=== PATIENT | female | born 1990 | race Caucasian/White ===

== ENCOUNTER → 2016-07-27 | Outpatient (CLI) | payer BC, OTHER ==
[2016-07-27 15:52] LABS: FREE T4 1.39 NG/DL (0.76-1.46)
== END ==
LOC: M WUC 13:51
PROVIDERS: ATTEND Physician Assistant Medical
DX: E06.3 Autoimmune thyroiditis (principal)

== ENCOUNTER → 2018-01-16 | Outpatient (REF) | payer OTHER ==
[2018-01-16 20:52] LABS: FREE T4 1.13 NG/DL (0.76-1.46)
== END ==
LOC: M LAB REF 09:50
DX: E06.3 Autoimmune thyroiditis (principal)

== ENCOUNTER → 2018-01-16 | Outpatient (REF) | payer OTHER | LOC: M LABDRWAD 09:53 | DX: O99.281 Endocrine, nutritional and metabolic diseases complicating pregnancy, first trimester (principal) ==

== ENCOUNTER → 2018-02-14 | Outpatient (REF) | payer OTHER ==
[2018-02-15 14:38] LABS: FREE T4 0.87 NG/DL (0.76-1.46)
== END ==
LOC: M LAB REF 13:58
DX: E06.3 Autoimmune thyroiditis (principal)

== ENCOUNTER → 2018-02-14 | Outpatient (REF) | payer OTHER | LOC: M LABDRWAD 14:01 | DX: Z34.82 Encounter for supervision of other normal pregnancy, second trimester (principal); Z36.89 Encounter for other specified antenatal screening ==

== ENCOUNTER → 2018-02-19 | Outpatient (CLI) | payer OTHER | LOC: M SMT 14:28 | DX: Z36.89 Encounter for other specified antenatal screening (principal); Z3A.19 19 weeks gestation of pregnancy | CPT/HCPCS: 76811 ==

== ENCOUNTER → 2018-03-26 | Outpatient (REF) | payer OTHER ==
[2018-03-26 19:25] LABS: FREE T4 1.02 NG/DL (0.76-1.46); THYROID STIMULATING HORMONE 1.08 uIU/ML (0.358-3.740)
== END ==
LOC: M LABDRAW1 18:41 → M LAB REF 18:41
PROVIDERS: ATTEND Nurse Practitioner Family
DX: E06.3 Autoimmune thyroiditis (principal)

== ENCOUNTER → 2018-03-26 | Outpatient (CLI) | payer OTHER ==
--- NOTE | 2018-03-27 04:14 | REP ---
Clinical: Anatomical evaluation. Comparison: 02/19/2018 . Findings: Examination demonstrates a single live intrauterine in cephalic presentation. motion is identified by technologist. Placenta is noted posterior and grade grade 1 without evidence for placenta previa or abruption. Amniotic fluid volume is normal. Cervix measures 5.4 cm in length and appears closed. No evidence for nuchal cord. Gestational age by LMP 24 weeks 1 day with KATHARINA 07/15/2018 . Gestational age by current measurements 23 weeks 5 days with KATHARINA 07/18/2018 . FHR equals 147 beats per minute. Estimated weight 648 grams ( 41st percentile). Anatomical assessment demonstrates normal structures including choroid plexus, cavum, cerebellum/posterior fossa, facial features, lungs, four-chamber heart/ventricular outflow tracts, diaphragm, stomach, cord insertion/three-vessel cord, kidneys/bladder, spine, and extremities. Impression: Single live intrauterine in cephalic presentation demonstrating appropriate interval growth. In conjunction with prior examination anatomical assessment is complete and normal. Electronically Signed by Nilay Alexis MD 03/27/2018 04:05 A
== END ==
LOC: M SMT 14:23
PROVIDERS: ATTEND Advanced Practice Midwife
DX: Z36.89 Encounter for other specified antenatal screening (principal); Z3A.23 23 weeks gestation of pregnancy

== ENCOUNTER → 2018-04-25 | Outpatient (CLI) | payer OTHER ==
[2018-04-25 18:13] LABS: HEMATOCRIT 30.1 % (36.0-47.0); HEMOGLOBIN 10.2 g/dl (12.0-15.5); MEAN CORPUSCULAR HEMOGLOBIN 32.3 pg (27.0-33.0); MEAN CORPUSCULAR HGB CONC 33.9 g/dl (32.0-36.5); MEAN CORPUSCULAR VOLUME 95.3 fl (80.0-96.0); RED BLOOD COUNT 3.16 10^6/uL (4.00-5.40); WHITE BLOOD COUNT 8.5 10^3/uL (4.0-10.0)
[2018-04-25 18:31] LABS: FREE T4 1.02 NG/DL (0.76-1.46); THYROID STIMULATING HORMONE 0.56 uIU/ML (0.358-3.740)
== END ==
LOC: M SMT 13:18
PROVIDERS: ATTEND Advanced Practice Midwife
DX: O99.282 Endocrine, nutritional and metabolic diseases complicating pregnancy, second trimester (principal)

== ENCOUNTER → 2018-05-03 | Outpatient (CLI) | payer OTHER | LOC: M LAB 06:44 | PROVIDERS: ATTEND Obstetrics & Gynecology | DX: Z34.83 Encounter for supervision of other normal pregnancy, third trimester (principal); Z3A.00 Weeks of gestation of pregnancy not specified ==

== ENCOUNTER → 2018-05-11 | Outpatient (CLI) | payer OTHER ==
[2018-05-11 21:02] LABS: BASO % 0.3 % (0.0-1.0); EOS % 0.2 % (0.0-3.0); HEMATOCRIT 31.9 % (36.0-47.0); HEMOGLOBIN 10.9 g/dl (12.0-15.5); LYMPH % 19.7 % (24.0-44.0); MEAN CORPUSCULAR HEMOGLOBIN 32.6 pg (27.0-33.0); MEAN CORPUSCULAR HGB CONC 34.2 g/dl (32.0-36.5); MEAN CORPUSCULAR VOLUME 95.5 fl (80.0-96.0); MONO # 0.8 10^3/uL (0.0-0.8); MONO % 8.2 % (0.0-5.0); NEUTROPHILS # 7.1 10^3/uL (1.8-7.7); NEUTROPHILS % 70.2 % (36.0-66.0); RED BLOOD COUNT 3.34 10^6/uL (4.00-5.40); WHITE BLOOD COUNT 10.1 10^3/uL (4.0-10.0)
[2018-05-11 21:08] LABS: FREE T4 1.34 NG/DL (0.76-1.46); THYROID STIMULATING HORMONE 0.195 uIU/ML (0.358-3.740)
== END ==
LOC: M ADAMS 16:54
PROVIDERS: ATTEND Nurse Practitioner Family
DX: D69.6 Thrombocytopenia, unspecified (principal); E06.3 Autoimmune thyroiditis

== ENCOUNTER → 2018-06-01 | Outpatient (REF) | payer OTHER ==
[2018-06-01 19:37] LABS: PLTBLUE- EDTA FREE CALC 162 K/mm3 (172-450)
[2018-06-01 19:43] LABS: PLTBLUE- EDTA FREE MACHINE 147 10^3/uL (172-450)
== END ==
LOC: M LAB REF 19:04
PROVIDERS: ATTEND Obstetrics & Gynecology
DX: Z34.83 Encounter for supervision of other normal pregnancy, third trimester (principal); Z3A.00 Weeks of gestation of pregnancy not specified

== ENCOUNTER → 2018-06-19 | Outpatient (REF) | payer OTHER | LOC: M LAB REF 13:22 | PROVIDERS: ATTEND Obstetrics & Gynecology | DX: Z34.83 Encounter for supervision of other normal pregnancy, third trimester (principal); Z3A.00 Weeks of gestation of pregnancy not specified ==

== ENCOUNTER 2018-07-14 15:04 | Inpatient (IN) | payer OTHER ==
[~2018-07-14] VITALS: Ht 160 cm; Wt 74.1 kg
[2018-07-14] MEDS: LR 1,000 ML IV SCH ×2 (03:15→17:35)
[2018-07-14 15:20] VITALS: BP 112/72
[2018-07-14] MEDS ORDERED: PENICILLIN G POTASSIUM IV 5 MU in D5W MINI-BAG PLUS 100 ML IV STA (15:22)
[2018-07-14] MEDS ORDERED: LACTATED RINGER'S 1000 ML IV STA (15:22)
[2018-07-14] MEDS ORDERED: FERR325T3 PO (16:11)
[2018-07-14] MEDS ORDERED: PRENTAB9 PO (16:11)
[2018-07-14] MEDS ORDERED: LEVO25TA5 PO (16:11)
[2018-07-14] MEDS ORDERED: METF500T13 PO (16:11)
[2018-07-14 16:28] LABS: PLTBLUE- EDTA FREE CALC 140 K/mm3 (172-450)
[2018-07-14 16:32] LABS: HEMATOCRIT 34.6 % (36.0-47.0); HEMOGLOBIN 11.9 g/dl (12.0-15.5); MEAN CORPUSCULAR HEMOGLOBIN 32.1 pg (27.0-33.0); MEAN CORPUSCULAR HGB CONC 34.4 g/dl (32.0-36.5); MEAN CORPUSCULAR VOLUME 93.3 fl (80.0-96.0); PLATELET COUNT, AUTOMATED 197 10^3/uL (150-450); RED BLOOD COUNT 3.71 10^6/uL (4.00-5.40); WHITE BLOOD COUNT 9.7 10^3/uL (4.0-10.0)
[2018-07-14 16:34] LABS: PLTBLUE- EDTA FREE MACHINE 127 10^3/uL (172-450)
[2018-07-14] MEDS: miSOPROStol 50 MCG 1/2 TAB (S0191) SL SCH ×2 (17:35→21:57)
[2018-07-14 17:40] VITALS: BP 114/62
--- NOTE | 2018-07-14 18:08 | NUR ---
L&D H&P HPI: 28 year old at 39+3 weeks estimated gestation. Expected date of confinement: 07/18/18. dated by LMP consistent with first TM US. Presents today for an IOL for GDM. Denies vaginal bleeding, loss of fluid, or uterine contractions. Reports regular movement. course c/b GDMA2, controlled with Metformin 500mg daily. PMH notable for hypothyroidism and she has been Euthyroid throughout this (dose of Synthroid 137mcg daily) labs: Blood type O+, antibody screen negative, rubella immune, VDRL nonreactive , hepatitis B surface antigen negative, HIV negative, hepatitis C antibody negative, GC/CT negative, aneuploidy/maternal serum screening: AFP4 negative, 1 hour glucose challenge test: 130, 3 hour glucose tolerance test: 80,198,219,136. GBS positive. Vaccinations: Tdap 05/11/18 Flu vaccine decline Radiology/OB US: no anomalies or placental abnormalities detected. History Past medical history: hypothyroidism Surgical history: left ankle/ortho Medications: PNV, levothyroxine 137mcg daily, Fe 325, Metformin 500mg Allergies: Sulfa ACTIVITY AIDE history: history of cervical dysplasia or STI/gHSV OB history: G1 Social history: no t/e/d Family history: HTN, Heart disease, Thyroid dz, MS. Objective Vitals: Normotensive, normal heart rate, afebrile Heart: Regular rate and rhythm. No murmurs, rubs or gallops. Lungs: Clear to auscultation bilaterally. No wheezes, crackles, rales or rhonchi. Abdomen: Uterine fundal height consistent with dates. No guarding or rebound tenderness. Extremities: No clubbing, cyanosis or edema. Normal deep tendon reflexes. Sterile vaginal exam: 3 cm, 50 %effacement, -3 station, cephalic, intact External monitoring: heart rate category 1 Tocodynamometer: contractions occurring intermittently Assessment/Plan 28 year old at 39+3 weeks gestation. Diagnosis: GDMA2. Reassuring and maternal status. -Admit to labor and delivery with routine labs and orders -External monitoring and tocodynamometer -Pediatrics and anesthesia consultations as needed. -GBS prophylaxis with IV penicillin -Start with cervical ripening Misoprostol 50mcg SL, then Pitocin -Insulin drip protocol PRN. Dr. Franco Merritt, DO, FACOG
[2018-07-14 18:51] VITALS: BP 118/70
[2018-07-14] MEDS ORDERED: PENICILLIN G POTASSIUM IV 2.5 MU in APPROPRIATE DILUENT 1 EA IV SCH (21:30)
[2018-07-15] VITALS (123 sets, daily range): BP systolic 59–132; BP diastolic 23–94
[2018-07-15] MEDS ORDERED: BUTORPHANOL 2 MG/ML INJ (J0595) IV ONE (02:30)
[2018-07-15] MEDS ORDERED: PROMETHAZINE INJ 25 MG/ML VIAL (J2550) IV ONE (02:30)
[2018-07-15] MEDS ORDERED: PROMETHAZINE INJ 25 MG/ML VIAL (J2550) As Ordered ONE (02:41)
[2018-07-15] MEDS ORDERED: BUTORPHANOL 2 MG/ML INJ (J0595) As Ordered ONE (02:42)
--- NOTE | 2018-07-15 02:44 | NUR ---
Progress Note Informed by RN that SROM occurred after second dose of misoprostol; clear fluid. RN rechecked SVE 4cm/75/-2. VSS/normotensive, normal HR, afebrile FHR Cat I [place]: ctxs q 3min Continue with Pitocin Nat Merritt DO
[2018-07-15] MEDS ORDERED: OXYTOCIN DRIP 30 UNITS in APPROPRIATE DILUENT 1 EA IV SCH ×2 (02:45→07:29)
[2018-07-15] MEDS ORDERED: OXYTOCIN 30 UNITS IN 0.9% NaCl 500ML IV BAG (J2590) As Ordered ONE (06:20)
--- NOTE | 2018-07-15 07:28 | NUR ---
Delivery note Spontaneous vaginal delivery Estimated gestational age at delivery: 39+4 weeks The active phase and second stage of labor progressed in normal fashion without epidural anesthesia. Patient did not receive any Pitocin labor augmentation. heart rate category 1 The head delivered left occiput anterior and restituted left occiput transverse. No nuchal cord was noted. The anterior shoulder delivered with gentle downward guidance and the remainder of the body delivered with ease. Cord clamping was delayed for approximately 1 minute after delivery. After doub ly clamping the cord, I guided the FOB to cut the cord. The was placed on the patient's chest for immediate bonding. data: Apgars 8 and 9. weight 3840 grams 8 pounds, 7 ounces. Time of delivery: 0645. Sex: Male The third stage of labor was actively managed with a bolus of IV Pitocin (30 units in 500 mL of normal saline). The placenta delivered completely intact with no missing cotyledons at 0650. A three-vessel cord with a central insertion was noted. After delivery of the placenta, the uterine fundus was approximately 2 c m below the umbilicus and firm. IV Pitocin was continued to maintain uterine tone. A normal, low level of uterine bleeding was noted. The cervix, vagina, vulva and perineum were inspected for lacerations. A first-degree laceration was noted. This was repaired with 3-0 Vicryl in typical fashion. Excellent hemostasis was noted. Estimated blood loss: 200 mL All sponges, needles, and instruments were accounted for per [facility] department protocol. Franco Merritt D.O., F.A.C.OSherry.
[2018-07-15] MEDS ORDERED: MEASLES,MUMPS,RUBELLA VACCINE INJ (MMR-II) (90707) SC SCH (07:30)
[2018-07-15] MEDS ORDERED: ACETAMINOPHEN 500 MG TAB PO PRN (07:30)
[2018-07-15] MEDS ORDERED: PROMETHAZINE 25 MG TAB PO PRN (07:30)
[2018-07-15] MEDS ORDERED: RHOGAM 300 MCG (1500 IU) INJ (J2790) IM SCH (07:30)
[2018-07-15] MEDS ORDERED: DOCUSATE SODIUM 100 MG CAP PO PRN (07:30)
[2018-07-15] MEDS ORDERED: ONDANSETRON 4MG/2ML VIAL (J2405) IV PRN (07:30)
[2018-07-15] MEDS: DIBUCAINE 1% OINTMENT 30GM TOP PRN ×3 (08:31→19:01)
[2018-07-15] MEDS: IBUPROFEN 800 MG TAB PO PRN ×2 (08:32→18:45)
[2018-07-15] MEDS: PRENATAL VITAMINS CHEWABLE TABLET PO SCH (09:00)
[2018-07-15] MEDS ORDERED: MORPHINE 4 MG/ML 1ML VIAL/SYRINGE (J2270) As Ordered ONE (10:00)
[2018-07-15 10:12] LABS: HEMOGLOBIN 10.8 g/dl (12.0-15.5); MEAN CORPUSCULAR HEMOGLOBIN 32.8 pg (27.0-33.0); MEAN CORPUSCULAR HGB CONC 34.8 g/dl (32.0-36.5); MEAN CORPUSCULAR VOLUME 94.2 fl (80.0-96.0); PLATELET COUNT, AUTOMATED 187 10^3/uL (150-450); RED BLOOD COUNT 3.29 10^6/uL (4.00-5.40); WHITE BLOOD COUNT 16.2 10^3/uL (4.0-10.0)
[2018-07-15] MEDS ORDERED: MORPHINE 4 MG/ML 1ML VIAL/SYRINGE (J2270) IV ONE (10:15)
[2018-07-15 10:23] LABS: INR 1.05; PARTIAL THROMBOPLASTIN TIME 24.2 SECONDS (25.4-37.6); PROTHROMBIN TIME 13.8 SECONDS (12.1-14.4)
--- NOTE | 2018-07-15 11:40 | NUR ---
Progress Note Ischiorectal fossa hematoma (left side) Pt was ambulating to restroom to urinate, and began to feel faint. During the first hour after delivery, she complained of increasing rectovaginal pressure. She was unable to void spontaneously while in the bathroom. She was guided to the bed for an exam. She remained conscious and alert. Her vitals were serially assessed. No significant hypotension. HR remained 80-100bpm. O2 sat on RA = 98-100%. Afebrile. The bladder was drained with a Heller catheter, productive of approximately 650ml of urine. A fundal massage was productive of a small amount of blood clot. The uterine fundus was firm and below the umbilicus. A sterile rectovaginal exam was performed and a large hematoma could be palpated along the left ischiorectal fossa. I estimated the hematoma to be about 5-6cm long, 2-3cm wide and about 3cm thick. No additional obstetric lacerations could be visualized. A vaginal packing was inserted in an effort to maintain tamponade / prevent expansion of the hematoma. Morphine 4mg IV was administered. Ancef 2g IV was ordered. Plan is to keep vaginal packing and Heller in place for the next several hours. CBC and coag panel ordered. Repeat as indicated. Transfer to [facility] once stable. Nat Merritt Do
[2018-07-15 14:09] LABS: HEMATOCRIT 28.7 % (36.0-47.0); HEMOGLOBIN 10.1 g/dl (12.0-15.5); MEAN CORPUSCULAR HGB CONC 35.2 g/dl (32.0-36.5); MEAN CORPUSCULAR VOLUME 93.8 fl (80.0-96.0); PLATELET COUNT, AUTOMATED 197 10^3/uL (150-450); RED BLOOD COUNT 3.06 10^6/uL (4.00-5.40); WHITE BLOOD COUNT 16.9 10^3/uL (4.0-10.0)
[2018-07-15] MEDS: LR 1,000 ML IV SCH (18:46)
--- NOTE | 2018-07-15 21:59 | NUR ---
Progress Note Pt feeling much improved. Denies lightheadedness/dizziness, JACOBS, sob, cp. VSS, mild tachycardia, normotensive. Afebrile UOP adequate; pearl in place SVE: vaginal packing removed. minimal bleeding. Vulvar edema noted but no ecchymosis. Hematoma palpated; soft, no enlargement. Appropriate tenderness on exam. A/P: Ischiorectal fossa hematoma. Stable. -Ambulate w/ nursing assistance. -Remove Pearl once ambulating without difficulty -Transfer to [facility] once voiding spontaneously. Nat Merritt, DO
[2018-07-15] MEDS: SLF 3 ML SYR IV SCH (22:33)
[2018-07-16] VITALS (10 sets, daily range): BP systolic 98–112; BP diastolic 55–72
[2018-07-16] MEDS: LR 1,000 ML IV SCH ×4 (03:49→23:29)
--- NOTE | 2018-07-16 06:20 | NUR ---
Day 1 Status post , complicated by ischiorectal fossa hematoma (left side) Vaginal packing removed last night. Pearl kept in place overnight. Subjective Pain is well controlled. Lochia decreasing and minimal. Rectovaginal pain is subsiding. Tolerating a regular diet. Ambulating without any assistance. Denies any subjective fever/chills/nausea/vomiting/headache/visual changes/shortness of breath/chest pain. Objective Vitals: Normotensive, normal heart rate, afebrile, adequate urine output. Heart: regular, rate, and rhythm. no murmurs/gallops/rubs Lungs: clear to auscultation bilaterally, no wheezes/crackles/rales/ronchi Abd: soft, nontender, nondistended, uterine fundus is 2cm below umbilicus and firm Ext: no significant edema, nontender, negative Junaid's bilaterally. Pelvic: Vulvar/periclitoral edema bilaterally, no ecchymosis. pearl in place Assessment/Plan: day 1. Recovering well. Hemodynamically stable, afebrile, good pain control. -Routine care -Remove Pearl this AM with due to void in 4-6 hours. -Anticipate discharge to home tomorrow if she continues to remain stable -Routine infectious, fever, pain, and bleeding precautions reviewed Dr. Franco Merritt, Luly.O., F.A.C.O.G.
[2018-07-16 06:33] LABS: HEMOGLOBIN 8.3 g/dl (12.0-15.5); MEAN CORPUSCULAR HEMOGLOBIN 32.8 pg (27.0-33.0); MEAN CORPUSCULAR HGB CONC 34.6 g/dl (32.0-36.5); MEAN CORPUSCULAR VOLUME 94.9 fl (80.0-96.0); PLATELET COUNT, AUTOMATED 141 10^3/uL (150-450); RED BLOOD COUNT 2.53 10^6/uL (4.00-5.40); WHITE BLOOD COUNT 11.2 10^3/uL (4.0-10.0)
[2018-07-16] MEDS: PRENATAL VITAMINS CHEWABLE TABLET PO SCH (08:22)
[2018-07-16] MEDS: LEVOTHYROXINE 112MCG TABLET (0.112MG) PO SCH (08:34)
[2018-07-16] MEDS ORDERED: LIDOCAINE 1% MDV 20ML VIAL As Ordered ONE (08:37)
[2018-07-16] MEDS: DIBUCAINE 1% OINTMENT 30GM TOP PRN (15:35)
[2018-07-16] MEDS ORDERED: SLF 3 ML SYR IV PRN (17:00)
[2018-07-17 02:00] VITALS: BP 102/59
[2018-07-17 06:00] VITALS: BP 110/58
[2018-07-17] MEDS: LEVOTHYROXINE 112MCG TABLET (0.112MG) PO SCH (06:04)
[2018-07-17] MEDS: SLF 3 ML SYR IV SCH (06:05)
[2018-07-17] MEDS: LR 1,000 ML IV SCH (07:12)
[2018-07-17] MEDS: IBUPROFEN 800 MG TAB PO PRN (08:58)
[2018-07-17] MEDS: PRENATAL VITAMINS CHEWABLE TABLET PO SCH (08:58)
[2018-07-17] MEDS ORDERED: IBUP-1114 PO (09:34)
[2018-07-17] MEDS ORDERED: MAPA500T2 PO (09:34)
[2018-07-19] MEDS ORDERED: IBUP80TA PO (16:17)
[2018-07-19] MEDS ORDERED: PERC5TAB12 PO (16:18)
[2018-07-19] MEDS ORDERED: KEFL500C17 PO (16:19)
[2018-07-19] MEDS ORDERED: DIBU10OI TOP (16:22)
== END 2018-07-17 10:50 | disposition home or self-care (01) | DRG 806 ==
LOC: M LDI 15:04 → M OBS 07-16 03:15
PROVIDERS: ADMIT Obstetrics & Gynecology; ATTEND Obstetrics & Gynecology
PROC: 3E0P7GC Introduction of Other Therapeutic Substance into Female Reproductive, Via Natural or Artificial Opening (ICD-10-PCS; 2018-07-14)
PROC: 10E0XZZ Delivery of Products of Conception, External Approach (ICD-10-PCS; principal; 2018-07-15)
PROC: 0HQ9XZZ Repair Perineum Skin, External Approach (ICD-10-PCS; 2018-07-15)
DX: O24.425 Gestational diabetes mellitus in childbirth, controlled by oral hypoglycemic drugs (principal); Z37.0 Single live birth; O71.7 Obstetric hematoma of pelvis; Z3A.39 39 weeks gestation of pregnancy; O99.284 Endocrine, nutritional and metabolic diseases complicating childbirth; E03.9 Hypothyroidism, unspecified; O99.824 Streptococcus B carrier state complicating childbirth; O70.0 First degree perineal laceration during delivery

== ENCOUNTER → 2018-08-21 | Outpatient (REF) | payer OTHER ==
[~2018-08-21] MED LIST: DIBU10OI TOP; FERR325T3 PO; IBUP-1114 PO; IBUP80TA PO; KEFL500C17 PO; LEVO25TA5 PO; MAPA500T2 PO; METF500T13 PO; PERC5TAB12 PO; PRENTAB9 PO
[2018-08-21 20:42] LABS: FREE T4 1.23 NG/DL (0.76-1.46); THYROID STIMULATING HORMONE 0.097 uIU/ML (0.358-3.740)
== END ==
LOC: M LABDRWAD 19:54
PROVIDERS: ATTEND Nurse Practitioner Family
DX: E06.3 Autoimmune thyroiditis (principal)

== ENCOUNTER → 2018-11-02 | Outpatient (REF) | payer OTHER ==
[2018-11-02 20:02] LABS: FREE T4 0.99 NG/DL (0.76-1.46); THYROID STIMULATING HORMONE 0.574 uIU/ML (0.358-3.740)
== END ==
LOC: M LABDRWAD 19:14
PROVIDERS: ATTEND Internal Medicine Endocrinology, Diabetes & Metabolism
DX: E06.3 Autoimmune thyroiditis (principal)

== ENCOUNTER → 2018-11-26 | Outpatient (REF) | payer OTHER | LOC: M LAB REF 19:37 | PROVIDERS: ATTEND Obstetrics & Gynecology | DX: Z12.4 Encounter for screening for malignant neoplasm of cervix (principal) ==

== ENCOUNTER → 2019-12-27 | Outpatient (REF) | payer OTHER | LOC: M SFHCWAGY 17:02 | PROVIDERS: ATTEND Obstetrics & Gynecology | DX: Z12.4 Encounter for screening for malignant neoplasm of cervix (principal) ==

== ENCOUNTER → 2020-12-03 | Outpatient (CLI) | payer OTHER ==
[~2020-12-03] MED LIST changes: -DIBU10OI TOP; +DIBU28OI2 TOP
== END ==
LOC: M PLALAB 13:08
PROVIDERS: ATTEND Advanced Practice Midwife
DX: O20.0 Threatened abortion (principal)

== ENCOUNTER → 2020-12-05 | Outpatient (CLI) | payer OTHER | LOC: M LAB 13:57 | PROVIDERS: ATTEND Advanced Practice Midwife | DX: O20.0 Threatened abortion (principal) ==

== ENCOUNTER → 2021-08-02 | Outpatient (REF) | payer OTHER | LOC: M LAB REF 15:25 | PROVIDERS: ATTEND Physician Assistant | DX: N39.0 Urinary tract infection, site not specified (principal) ==

== ENCOUNTER → 2021-08-12 | Outpatient (CLI) | payer OTHER | LOC: M WHC 14:54 | PROVIDERS: ATTEND Obstetrics & Gynecology | DX: Z31.69 Encounter for other general counseling and advice on procreation (principal); N83.201 Unspecified ovarian cyst, right side ==

== ENCOUNTER → 2021-08-31 | Outpatient (CLI) | payer OTHER ==
[~2021-08-31] MED LIST changes: +ISOVUE-370 76% 100ML VIAL As Ordered ONE
== END ==
LOC: M RADPRO 11:59
PROVIDERS: ATTEND Obstetrics & Gynecology
DX: N97.9 Female infertility, unspecified (principal); Z31.69 Encounter for other general counseling and advice on procreation
CPT/HCPCS: 58340; 74740; Q9967

== ENCOUNTER → 2022-06-17 | Outpatient (CLI) | payer OTHER ==
[~2022-06-17] MED LIST changes: -ISOVUE-370 76% 100ML VIAL As Ordered ONE
[2022-06-17 15:41] LABS: HEMATOCRIT 28.9 % (36.0-47.0); HEMOGLOBIN 10.1 g/dl (12.0-15.5); MEAN CORPUSCULAR HGB CONC 34.9 g/dl (32.0-36.5); MEAN CORPUSCULAR VOLUME 91.5 fl (80.0-96.0); PLATELET COUNT, AUTOMATED 108 10^3/uL (150-450); RED BLOOD COUNT 3.16 10^6/uL (4.00-5.40); WHITE BLOOD COUNT 7.8 10^3/uL (4.0-10.0)
[2022-06-17 16:15] LABS: GLUCOSE CHALLENGE TEST 1 HOUR 159 MG/DL (LESS THAN 140)
[2022-06-17 16:47] LABS: HIV 1&2 SCREEN CENTAUR NEGATIVE (NEGATIVE)
[2022-06-17 17:04] LABS: GC DNA AMPLIFICATION NEGATIVE (NEGATIVE)
== END ==
LOC: M PLALAB 12:56
PROVIDERS: ATTEND Obstetrics & Gynecology
DX: Z34.81 Encounter for supervision of other normal pregnancy, first trimester (principal); Z86.32 Personal history of gestational diabetes; Z3A.00 Weeks of gestation of pregnancy not specified

== ENCOUNTER → 2022-06-17 | Outpatient (REF) | payer OTHER | LOC: M PLALAB 12:26 | PROVIDERS: ATTEND Obstetrics & Gynecology | DX: Z53.9 Procedure and treatment not carried out, unspecified reason (principal) ==

== ENCOUNTER → 2022-06-29 | Outpatient (CLI) | payer OTHER | LOC: M LAB 06:25 | PROVIDERS: ATTEND Obstetrics & Gynecology | DX: O99.810 Abnormal glucose complicating pregnancy (principal) ==

== ENCOUNTER → 2022-07-26 | Outpatient (CLI) | payer OTHER | LOC: M RAD 15:08 | PROVIDERS: ATTEND Specialist | DX: Z34.82 Encounter for supervision of other normal pregnancy, second trimester (principal) ==

== ENCOUNTER → 2022-09-07 | Outpatient (CLI) | payer OTHER | LOC: M RAD 15:00 | PROVIDERS: ATTEND Specialist | DX: Z34.82 Encounter for supervision of other normal pregnancy, second trimester (principal) ==

== ENCOUNTER → 2022-10-03 | Outpatient (CLI) | payer OTHER | LOC: M LAB 06:41 | PROVIDERS: ATTEND Obstetrics & Gynecology | DX: Z86.32 Personal history of gestational diabetes (principal) ==

== ENCOUNTER → 2022-10-03 | Outpatient (CLI) | payer OTHER | LOC: M RAD 11:34 | PROVIDERS: ATTEND Obstetrics & Gynecology | DX: Z36.2 Encounter for other antenatal screening follow-up (principal); Z3A.30 30 weeks gestation of pregnancy ==

== ENCOUNTER → 2022-10-03 | Outpatient (CLI) | payer OTHER ==
[2022-10-03 07:46] LABS: HEMATOCRIT 30.6 % (36.0-47.0); HEMOGLOBIN 10.2 g/dl (12.0-15.5); MEAN CORPUSCULAR HEMOGLOBIN 31.5 pg (27.0-33.0); MEAN CORPUSCULAR HGB CONC 33.3 g/dl (32.0-36.5); MEAN CORPUSCULAR VOLUME 94.4 fl (80.0-96.0); PLATELET COUNT, AUTOMATED 168 10^3/uL (150-450); RED BLOOD COUNT 3.24 10^6/uL (4.00-5.40); WHITE BLOOD COUNT 8.3 10^3/uL (4.0-10.0)
[2022-10-03 10:05] LABS: GC DNA AMPLIFICATION NEGATIVE (NEGATIVE)
== END ==
LOC: M LAB 06:42
PROVIDERS: ATTEND Specialist
DX: Z34.82 Encounter for supervision of other normal pregnancy, second trimester (principal)

== ENCOUNTER → 2022-11-17 | Outpatient (REF) | payer OTHER | LOC: M SFHCWAGY 15:41 | PROVIDERS: ATTEND Obstetrics & Gynecology | DX: Z36.85 Encounter for antenatal screening for Streptococcus B (principal) ==

== ENCOUNTER → 2023-07-07 | Outpatient (REF) | payer OTHER ==
[~2023-07-07] MED LIST changes: +ACET-683 PO; +COLA100C5 PO; +IBUP-1022 PO; +LEVO112T2 PO
[2023-07-07 14:14] LABS: FREE T4 1.38 NG/DL (0.89-1.76); THYROID STIMULATING HORMONE 0.438 uIU/ML (0.55-4.78)
== END ==
LOC: M LABDRWAD 12:45
PROVIDERS: ATTEND Nurse Practitioner Family
DX: E06.3 Autoimmune thyroiditis (principal)

== ENCOUNTER → 2023-07-28 | Outpatient (REF) | payer OTHER | LOC: M SFHCWAGY 09:59 | PROVIDERS: ATTEND Nurse Practitioner Family | DX: Z12.4 Encounter for screening for malignant neoplasm of cervix (principal) ==

== ENCOUNTER → 2023-09-09 | Outpatient (REF) | payer OTHER | LOC: M LAB REF 18:03 | PROVIDERS: ATTEND Physician Assistant | DX: R30.0 Dysuria (principal) ==

== ENCOUNTER → 2024-01-15 | Outpatient (CLI) | payer OTHER ==
[2024-01-15 15:51] LABS: FREE T4 1.22 NG/DL (0.89-1.76); THYROID STIMULATING HORMONE 1.561 uIU/ML (0.55-4.78)
== END ==
LOC: M PLALAB 09:37
PROVIDERS: ATTEND Nurse Practitioner Family
DX: E06.3 Autoimmune thyroiditis (principal)

== ENCOUNTER → 2024-01-15 | Outpatient (CLI) | payer OTHER ==
[2024-01-15 14:57] LABS: HEMATOCRIT 36.7 % (36.0-47.0); HEMOGLOBIN 12.5 g/dl (12.0-15.5); MEAN CORPUSCULAR HEMOGLOBIN 30.8 pg (27.0-33.0); MEAN CORPUSCULAR HGB CONC 34.1 g/dl (32.0-36.5); MEAN CORPUSCULAR VOLUME 90.4 fl (80.0-96.0); RED BLOOD COUNT 4.06 10^6/uL (4.00-5.40)
[2024-01-15 16:18] LABS: HIV 1&2 SCREEN NEGATIVE (NEGATIVE)
[2024-01-15 16:26] LABS: HEPATITIS C VIRUS ABY INDEX 0.06 INDEX (<0.8)
== END ==
LOC: M PLALAB 09:35
PROVIDERS: ATTEND Specialist
DX: Z34.80 Encounter for supervision of other normal pregnancy, unspecified trimester (principal)

== ENCOUNTER → 2024-03-20 | Outpatient (CLI) | payer OTHER | LOC: M WHC 07:14 | PROVIDERS: ATTEND Specialist | DX: Z34.82 Encounter for supervision of other normal pregnancy, second trimester (principal) ==

== ENCOUNTER → 2024-05-14 | Outpatient (CLI) | payer OTHER ==
[2024-05-14 18:12] LABS: HEMATOCRIT 28.6 % (36.0-47.0); HEMOGLOBIN 9.8 g/dl (12.0-15.5); MEAN CORPUSCULAR HEMOGLOBIN 32.5 pg (27.0-33.0); MEAN CORPUSCULAR HGB CONC 34.3 g/dl (32.0-36.5); MEAN CORPUSCULAR VOLUME 94.7 fl (80.0-96.0); PLATELET COUNT, AUTOMATED 107 10^3/uL (150-450); RED BLOOD COUNT 3.02 10^6/uL (4.00-5.40); WHITE BLOOD COUNT 7.3 10^3/uL (4.0-10.0)
[2024-05-14 18:35] LABS: GLUCOSE CHALLENGE TEST 1 HOUR 136 MG/DL (LESS THAN 140)
[2024-05-14 19:04] LABS: HIV 1&2 SCREEN NEGATIVE (NEGATIVE)
[2024-05-14 19:12] LABS: HEPATITIS C VIRUS ABY INDEX 0.17 INDEX (<0.8)
== END ==
LOC: M PLALAB 15:05
PROVIDERS: ATTEND Specialist
DX: Z34.82 Encounter for supervision of other normal pregnancy, second trimester (principal)

== ENCOUNTER → 2024-05-31 | Outpatient (CLI) | payer OTHER | LOC: M LAB 07:48 | PROVIDERS: ATTEND Specialist | DX: O99.810 Abnormal glucose complicating pregnancy (principal) ==

== ENCOUNTER → 2024-06-03 | Outpatient (REF) | payer OTHER ==
[2024-06-03 21:58] LABS: GC DNA AMPLIFICATION NEGATIVE (NEGATIVE)
== END ==
LOC: M SFHCWAGY 16:53
PROVIDERS: ATTEND Specialist
DX: Z34.82 Encounter for supervision of other normal pregnancy, second trimester (principal)

== ENCOUNTER → 2024-06-11 | Outpatient (CLI) | payer OTHER | LOC: M WHC 07:26 | PROVIDERS: ATTEND Nurse Practitioner Family | DX: O24.419 Gestational diabetes mellitus in pregnancy, unspecified control (principal); Z3A.32 32 weeks gestation of pregnancy ==

== ENCOUNTER → 2024-07-09 | Outpatient (CLI) | payer OTHER ==
[~2024-07-09] MED LIST changes: +FERR325T19
== END ==
LOC: M WHC 14:25
PROVIDERS: ATTEND Nurse Practitioner Family
DX: O24.419 Gestational diabetes mellitus in pregnancy, unspecified control (principal)

== ENCOUNTER → 2024-07-11 | Outpatient (REF) | payer OTHER | LOC: M SFHCWAGY 16:55 | PROVIDERS: ATTEND Specialist | DX: Z34.83 Encounter for supervision of other normal pregnancy, third trimester (principal) ==